=== PATIENT | female | born 1975 | race Caucasian/White ===

== ENCOUNTER 2019-03-24 16:58 | Emergency (ER) | payer MEDICAID ==
[~2019-03-24] VITALS: Ht 152.4 cm; Wt 87.1 kg
[2019-03-24 17:15] VITALS: BP 147/90
[2019-03-24] MEDS ORDERED: ALPRAZOLAM 0.25 MG TABLET ONE (18:02)
[2019-03-24] MEDS: ALPRAZOLAM 0.25 MG TABLET PO ONE (18:06)
--- NOTE | 2019-03-24 18:37 | NUR ---
Patient discharged to home in stable condition. Written and verbal after care instructions given. Patient verbalizes understanding of instruction.
== END 2019-03-24 18:38 | disposition home or self-care (01) ==
LOC: ER 17:01
DX: F41.9 Anxiety disorder, unspecified (principal); R42 Dizziness and giddiness; E11.9 Type 2 diabetes mellitus without complications; Z60.2 Problems related to living alone